=== PATIENT | female | born 1955 | race Caucasian/White ===

== ENCOUNTER → 2016-11-16 | Outpatient (CLI) | payer BC ==
--- NOTE | 2016-11-16 11:05 | REPMRS ---
Patient History The patient states she had a clinical breast exam in 09/2016. Patient is postmenopausal. Family history of breast cancer in mother at age 39. Benign stereotactic core biopsy of the left breast, 2011. Took hormonal contraceptives for 2 years. Digital Woman Screen Mammo: November 16, 2016 - Exam #: [id number] Bilateral CC and MLO view(s) were taken. Technologist: Larissa Crum, Technologist Prior study comparison: June 15, 2013, bilateral bilat screen digital mammo, performed at [facility] ([facility]). June 01, 2012, bilateral bilat screen digital mammo, performed at [facility] ([facility]). FINDINGS: There are scattered fibroglandular densities. There is no evidence of cancer on this mammogram. No significant changes when compared with prior studies. ASSESSMENT: BI-RADS/ACR category 2 mammogram. Benign finding(s). Recommendation Routine screening mammogram of both breasts in 1 year (for women over age 40). This mammogram was interpreted with the aid of an FDA-approved computer-aided dectection system. Electronically Signed By: Adeel Roldan MD 11/16/16 8411
== END ==
LOC: M WHC 07:48
PROVIDERS: ATTEND Nurse Practitioner Women's Health
DX: Z12.31 Encounter for screening mammogram for malignant neoplasm of breast (principal)

== ENCOUNTER → 2017-11-23 | Outpatient (CLI) | payer BC | LOC: M WHC 08:19 | DX: Z12.31 Encounter for screening mammogram for malignant neoplasm of breast (principal) | CPT/HCPCS: 77067 ==

== ENCOUNTER → 2018-11-24 | Outpatient (CLI) | payer BC ==
--- NOTE | 2018-11-24 09:44 | REPMRS ---
Patient History The patient states she had a clinical breast exam in 10/2018. Patient is postmenopausal. Family history of breast cancer at age 39 in mother, colorectal cancer at age 35 in niece. Benign stereotactic core biopsy of the left breast, 2011. Took hormonal contraceptives for 2 years. 3D TOMOSYNTHESIS WAS PERFORMED. The [facility] lifetime risk for breast cancer is 15.3%. Digital Woman Screen Mammo: November 24, 2018 - Exam #: [id number] Bilateral CC and MLO view(s) were taken. Technologist: Larissa Crum, Technologist Prior study comparison: November 23, 2017, bilateral digital woman screen mammo performed at [facility]. November 16, 2016, digital woman screen mammo performed at [facility] [employer]. FINDINGS: There are scattered fibroglandular densities. There has been no change in the appearance of the mammogram from the prior studies. There is a mild amount of residual fibroglandular tissue which is fairly symmetric. There is no interval development of dominant mass, architectural distortion, or clustered microcalcification suggestive of malignancy. Assessment: BI-RADS/ACR category 1 mammogram. Negative Mammogram. Recommendation Routine screening mammogram in 1 year (for women over age 40). This mammogram was interpreted with the aid of an FDA-approved computer-aided dectection system. Electronically Signed By: Adeel Roldan MD 11/24/18 0944
== END ==
LOC: M WHC 07:56
PROVIDERS: ATTEND Nurse Practitioner Women's Health
DX: Z12.31 Encounter for screening mammogram for malignant neoplasm of breast (principal); Z80.0 Family history of malignant neoplasm of digestive organs

== ENCOUNTER → 2019-12-01 | Outpatient (CLI) | payer BC ==
--- NOTE | 2019-12-01 09:31 | REPMRS ---
Patient History The patient states she had a clinical breast exam in 11/2019. Patient is postmenopausal. Family history of breast cancer at age 39 in mother, colorectal cancer at age 35 in niece, breast cancer at age 60 in sister. Benign stereotactic core biopsy of the left breast, 2011. Took hormonal contraceptives for 2 years. 3D TOMOSYNTHESIS WAS PERFORMED. The [facility] lifetime risk for breast cancer is 18.2%. VOLPARA DENSITY B. Digital Woman Screen Mammo: December 01, 2019 - Exam #: [id number] Bilateral CC and MLO view(s) were taken. Technologist: Larissa Crum, Technologist Prior study comparison: November 24, 2018, bilateral digital woman screen mammo performed at [facility]. November 23, 2017, bilateral digital woman screen mammo performed at [facility]. FINDINGS: There are scattered fibroglandular densities. There has been no change in the appearance of the mammogram from the prior studies. There is a mild amount of residual fibroglandular tissue which is fairly symmetric. There is no interval development of dominant mass, architectural distortion, or clustered microcalcification suggestive of malignancy. Assessment: BI-RADS/ACR category 1 mammogram. Negative Mammogram. Recommendation Routine screening mammogram in 1 year (for women over age 40). This mammogram was interpreted with the aid of an FDA-approved computer-aided dectection system. Electronically Signed By: Adeel Roldan MD 12/01/19 0931
== END ==
LOC: M WHC 08:02
PROVIDERS: ATTEND Obstetrics & Gynecology
DX: Z12.31 Encounter for screening mammogram for malignant neoplasm of breast (principal); Z80.3 Family history of malignant neoplasm of breast; Z86.018 Personal history of other benign neoplasm

== ENCOUNTER → 2021-01-22 | Outpatient (CLI) | payer BC, MEDICARE | LOC: M WHC 08:31 | PROVIDERS: ATTEND Obstetrics & Gynecology | DX: Z12.31 Encounter for screening mammogram for malignant neoplasm of breast (principal); Z78.0 Asymptomatic menopausal state; Z85.828 Personal history of other malignant neoplasm of skin ==

== ENCOUNTER → 2023-06-11 | Outpatient (CLI) | payer MEDICARE, BC | LOC: M WHC 09:52 | PROVIDERS: ATTEND Nurse Practitioner Adult Health | DX: Z12.31 Encounter for screening mammogram for malignant neoplasm of breast (principal); R92.323 Mammographic fibroglandular density, bilateral breasts ==

== ENCOUNTER 2023-11-19 15:57 | Emergency (ER) | payer MEDICARE, BC ==
[~2023-11-19] VITALS: Ht 149.9 cm; Wt 59.8 kg
[2023-11-19 17:28] LABS: BASO % 0.1 % (0.0-1.0); EOS # 0.1 10^3/uL (0.0-0.5); EOS % 0.7 % (0.0-3.0); HEMATOCRIT 47.7 % (36.0-47.0); HEMOGLOBIN 15.6 g/dl (12.0-15.5); LYMPH # 1.2 10^3/uL (1.5-5.0); LYMPH % 8.4 % (24.0-44.0); MEAN CORPUSCULAR HEMOGLOBIN 29.1 pg (27.0-33.0); MEAN CORPUSCULAR HGB CONC 32.7 g/dl (32.0-36.5); MEAN CORPUSCULAR VOLUME 88.8 fl (80.0-96.0); MONO # 0.8 10^3/uL (0.0-0.8); MONO % 5.9 % (2.0-8.0); NEUTROPHILS # 11.6 10^3/uL (1.5-8.5); NEUTROPHILS % 84.5 % (36.0-66.0); PLATELET COUNT, AUTOMATED 251 10^3/uL (150-450); RED BLOOD COUNT 5.37 10^6/uL (4.00-5.40); WHITE BLOOD COUNT 13.8 10^3/uL (4.0-10.0)
[2023-11-19] MEDS ORDERED: ISOVUE-370 76% 100ML VIAL As Ordered ONE (17:44)
[2023-11-19 17:59] LABS: BLOOD UREA NITROGEN 15 MG/DL (9-23); CALCIUM LEVEL 9.3 MG/DL (8.3-10.6); CARBON DIOXIDE LEVEL 27 MMOL/L (20-31); CHLORIDE LEVEL 103 MMOL/L (98-107); CREATININE FOR GFR 0.84 MG/DL (0.55-1.30); GLOMERULAR FILTRATION RATE > 60.0 (>45); GLUCOSE, FASTING 103 MG/DL (74-106); POTASSIUM SERUM 3.7 MMOL/L (3.5-5.1); SODIUM LEVEL 136 MMOL/L (136-145)
[2023-11-19] MEDS ORDERED: ALBU8.5H (18:39)
[2023-11-19] MEDS ORDERED: BENA20TA6 (18:39)
[2023-11-19] MEDS ORDERED: ANOR1AER (18:39)
[2023-11-19] MEDS ORDERED: ATOR1TAB21 (18:39)
[2023-11-19] MEDS ORDERED: AMLO1TAB24 (18:39)
[2023-11-19 18:40] VITALS: TEMP 98.1
[2023-11-19] MEDS: hydroCHLOROthiazide 12.5 MG CAPSULE PO ONE (18:59)
[2023-11-19] MEDS: amLODIPine 5 MG TAB PO ONE (18:59)
[2023-11-19 19:09] VITALS: BP 185/83
[2023-11-19] MEDS: BENAZEPRIL 20 MG TAB PO ONE (19:09)
[2023-11-19 20:00] VITALS: BP 204/87
[2023-11-19 20:15] VITALS: O2SAT 92
[2023-11-19] MEDS ORDERED: CLEO300C2 PO (21:00)
[2023-11-19] MEDS: CLINDAMYCIN 150MG CAPSULE PO ONE (21:07)
== END 2023-11-19 21:13 | disposition home or self-care (01) ==
LOC: M ED 15:57
DX: K11.20 Sialoadenitis, unspecified (principal); I10 Essential (primary) hypertension; E78.00 Pure hypercholesterolemia, unspecified; J45.909 Unspecified asthma, uncomplicated
CPT/HCPCS: 70491; 80047; 80048; 85025; 87040; 99284; Q9967

== ENCOUNTER → 2024-07-04 | Outpatient (CLI) | payer MEDICARE, BC ==
[~2024-07-04] MED LIST: ALBU8.5H; AMLO1TAB24; ANOR1AER; ATOR1TAB21; BENA20TA6; CLEO300C2 PO
== END ==
LOC: M RAD 14:59
PROVIDERS: ATTEND Internal Medicine
DX: N18.32 Chronic kidney disease, stage 3b (principal)

== ENCOUNTER → 2024-07-13 | Outpatient (CLI) | payer MEDICARE, BC | LOC: M WHC 08:58 | PROVIDERS: ATTEND Nurse Practitioner Adult Health | DX: Z12.31 Encounter for screening mammogram for malignant neoplasm of breast (principal); R92.313 Mammographic fatty tissue density, bilateral breasts ==